=== PATIENT | female | born 1955 | race Caucasian/White ===

== ENCOUNTER 2017-05-12 12:25 | Outpatient (CLI) | payer OTHER ==
[~2017-05-12 12:25] MED LIST: ESCI20TA PO
== END 2017-05-12 19:25 | disposition home or self-care (01) ==
LOC: SRD 12:25
PROVIDERS: ATTEND Family Medicine
DX: Z01.818 Encounter for other preprocedural examination (principal); M81.0 Age-related osteoporosis without current pathological fracture; M47.894 Other spondylosis, thoracic region
CPT/HCPCS: 71020-TC